=== PATIENT | male | born 1955 | race Caucasian/White ===

== ENCOUNTER 2019-09-03 16:16 | Emergency (ER) | payer OTHER ==
[~2019-09-03] VITALS: Ht 175.3 cm; Wt 83.9 kg
[2019-09-03 17:20] VITALS: BP 158/98
== END 2019-09-03 18:04 | disposition home or self-care (01) ==
LOC: ER 16:16
DX: S61.012A Laceration without foreign body of left thumb without damage to nail, initial encounter (principal); W27.2XXA Contact with scissors, initial encounter; Y93.89 Activity, other specified; Y92.89 Other specified places as the place of occurrence of the external cause; Y99.0 Civilian activity done for income or pay
CPT/HCPCS: 12001